=== PATIENT | female | born 1965 | race Caucasian/White ===

== ENCOUNTER → 2017-08-29 | Outpatient (CLI) | payer OTHER ==
[~2017-08-29] MED LIST: BUPROPION; CELEXA; MECLIZINE HCL25 M1 PO; NEXIUM; NORCO 5-325 TA1 EACH PO
== END ==
LOC: M.RAD 15:16
DX: R06.02 Shortness of breath (principal); R05 Cough

== ENCOUNTER → 2018-08-29 | Outpatient (CLI) | payer OTHER | LOC: M.RAD 16:00 | DX: Z12.31 Encounter for screening mammogram for malignant neoplasm of breast (principal) ==

== ENCOUNTER → 2020-02-03 | Outpatient (CLI) | payer OTHER | LOC: M.RAD 12:03 | PROVIDERS: ATTEND Family Medicine | DX: N64.89 Other specified disorders of breast (principal); N64.4 Mastodynia ==

== ENCOUNTER → 2020-05-25 | Outpatient (CLI) | payer OTHER | LOC: M.CT 16:00 | PROVIDERS: ATTEND Specialist | DX: M51.16 Intervertebral disc disorders with radiculopathy, lumbar region (principal); M43.28 Fusion of spine, sacral and sacrococcygeal region; M25.78 Osteophyte, vertebrae ==

== ENCOUNTER → 2020-06-09 | Outpatient (CLI) | payer OTHER | LOC: M.CT 09:46 | PROVIDERS: ATTEND Nurse Practitioner Family | DX: R10.829 Rebound abdominal tenderness, unspecified site (principal) ==

== ENCOUNTER → 2020-07-09 | Outpatient (CLI) | payer OTHER | LOC: M.ULTRA 15:28 | PROVIDERS: ATTEND Nurse Practitioner Family | DX: N64.4 Mastodynia (principal) ==

== ENCOUNTER → 2021-02-28 | Outpatient (CLI) | payer OTHER | LOC: M.ULTRA 10:00 | PROVIDERS: ATTEND Specialist | DX: R10.32 Left lower quadrant pain (principal) ==